=== PATIENT | female | born 1985 | race Caucasian/White ===

== ENCOUNTER 2022-05-01 02:48 | Emergency (ER) | payer BC, OTHER ==
[2022-05-01] MEDS ORDERED: Ibuprofen 600 MG Tab PO ONE (02:59)
[2022-05-01] MEDS ORDERED: Ondansetron 4 MG Tab.DIS PO ONE (02:59)
[2022-05-01 03:38] LABS: CORONAVIRUS COVID-19 NAA NEGATIVE (NEGATIVE); INFLUENZA A NAA POSITIVE (NEGATIVE); INFLUENZA B NAA NEGATIVE (NEGATIVE)
== END 2022-05-01 04:07 | disposition home or self-care (01) ==
LOC: MW.ED 02:48
DX: J10.1 Influenza due to other identified influenza virus with other respiratory manifestations (principal); Z88.0 Allergy status to penicillin; Z88.2 Allergy status to sulfonamides; Z20.822 Contact with and (suspected) exposure to COVID-19
CPT/HCPCS: 0240U; 99284; A9270

== ENCOUNTER 2023-12-24 15:11 | Inpatient (IN) | payer BC ==
[2023-12-24 16:16] LABS: HEMOGLOBIN 11.5 g/dL (12.0-16.0); MEAN CORPUSCULAR HEMOGLOBIN 29.9 pg (28.0-32.0); MEAN CORPUSCULAR HGB CONC 34.8 g/dL (32.0-36.0); MEAN CORPUSCULAR VOLUME 85.9 fL (83.0-99.0); MEAN PLATELET VOLUME 9.3 fL (9.4-12.3); PLATELET COUNT,PLT 322 K/uL (150-400); RED BLOOD CELL COUNT 3.84 M/uL (4.10-5.30); WHITE BLOOD CELL COUNT,WBC 12.17 K/uL (3.9-11.3)
[2023-12-24 16:32] LABS: APPEARANCE,URINE CLOUDY; BILIRUBIN,URINE NEGATIVE (NEGATIVE); COLOR,URINE YELLOW; GLUCOSE,URINE NEGATIVE (NEGATIVE); KETONES,URINE NEGATIVE (NEGATIVE); LEUKOCYTE ESTERASE,URINE LARGE (NEGATIVE); NITRITE,URINE NEGATIVE (NEGATIVE); OCCULT BLOOD,URINE NEGATIVE (NEGATIVE); PH,URINE 6.5 (5.0-8.0); PROTEIN,URINE NEGATIVE (NEGATIVE); UROBILINOGEN,URINE 0.2 EU/dL (<2.0)
[2023-12-24 16:34] LABS: A/G RATIO 0.7 (0.9-1.6); ALBUMIN 2.5 g/dL (3.4-5.0); BILIRUBIN TOTAL 0.3 mg/dL (0.2-1.0); CALCIUM 8.8 mg/dL (8.5-10.1); CARBON DIOXIDE,CO2 21.8 mmol/L (21.0-32.0); CREATININE 0.9 mg/dL (0.6-1.0); EST CRCL DRUG DOSING (CG) 90.31 mL/min; POTASSIUM,K 3.6 mmol/L (3.5-5.1); PROTEIN TOTAL,TP 6.3 g/dL (6.4-8.2); URIC ACID 5.4 mg/dL (2.6-7.2)
[2023-12-24] MEDS ORDERED: Carboprost Tromethamine 250 MCG/1 mL Vial IM PRN (18:35)
[2023-12-24] MEDS ORDERED: Methylergonovine 0.2 MG/1 ML Amp IM PRN (18:35)
[2023-12-24] MEDS ORDERED: Terbutaline 1 MG/ML SDV SUBCUT PRN (18:35)
[2023-12-24] MEDS ORDERED: Water For Irrigation,Sterile 1,000 ML Container IRR PRN (18:35)
[2023-12-24] MEDS ORDERED: Sodium Chloride 0.9% 10 ML Syringe FLUSH PRN (18:35)
[2023-12-24] MEDS ORDERED: Ondansetron 4 MG/2 ML SDV IVPUSH PRN (18:35)
[2023-12-24] MEDS ORDERED: Sodium Chloride 0.9% 2.5 ML Syringe FLUSH PRN (18:35)
[2023-12-24] MEDS ORDERED: Sodium Chloride 0.9% 20 ML SDV IV PRN (18:35)
[2023-12-24] MEDS ORDERED: Tranexamic Acid IN NACL,ISO-OS 1,000 MG in Premix Bag 1 BAG IV PRN (18:35)
[2023-12-24] MEDS ORDERED: Misoprostol 200 MCG Tab PO PRN (18:35)
[2023-12-24] MEDS ORDERED: Oxytocin/0.9 % Sodium Chloride 30 UNIT/500 ML BAG IV SCH (18:45)
[2023-12-24] MEDS: Misoprostol 25 MCG (1/4 of 100 MCG) Tab VAG PRN ×2 (19:05→23:15)
[2023-12-24] MEDS: Misoprostol 25 MCG (1/4 of 100 MCG) Tab PO PRN (19:05)
[2023-12-25] MEDS: Lactated Ringers 1,000 ML IV SCH (00:40)
[2023-12-25] MEDS: Calcium Carbonate 500 MG Tab.Chew PO PRN (03:49)
[2023-12-25] MEDS: Butorphanol 2 MG/ML SDV IVPUSH PRN (14:55)
[2023-12-25] MEDS: Ropivacaine HCl/PF 200 ML ONE (16:23)
[2023-12-25] MEDS: Oxytocin/0.9 % Sodium Chloride 30 UNIT/500 ML BAG IV SCH (16:30)
[2023-12-25] MEDS ORDERED: ePHEDrine 50 MG/ML SDV IVPUSH PRN ×2 (16:31)
[2023-12-25] MEDS ORDERED: Phenylephrine HCl In 0.9% NaCl 1 MG/10 ML Syringe IVPUSH PRN (16:31)
[2023-12-25] MEDS ORDERED: Ropivacaine HCl/PF 400 MG in Premix Bag 1 BAG EPIDUR SCH (16:45)
[2023-12-25] MEDS: Lidocaine 1% 50 ML MDV INJECT PRN (20:13)
[2023-12-25] MEDS ORDERED: Lanolin 100% Cream 7 GM Tube TOP PRN (22:47)
[2023-12-25] MEDS: Witch Hazel Medicated Pads 40/Jar TOP PRN (23:52)
[2023-12-25] MEDS: Benzocaine/Menthol 20%-0.5% Spray 78 GM Cannister TOP PRN (23:52)
[2023-12-25] MEDS: Acetaminophen 500 MG Tab PO PRN (23:53)
[2023-12-25] MEDS: Docusate Sodium 100 MG Cap PO PRN (23:53)
[2023-12-26] MEDS: Ibuprofen 800 MG Tab PO PRN (04:07)
[2023-12-26 05:07] LABS: URINE PROTEIN 23 mg/dL (1-14)
[2023-12-26 06:25] LABS: HEMATOCRIT 31.4 % (37.0-47.0); HEMOGLOBIN 10.7 g/dL (12.0-16.0)
[2023-12-26] MEDS: Phenylephrine HCl In 0.9% NaCl 1 MG/10 ML Syringe ONE (07:12)
[2023-12-26] MEDS: Bupivacaine 0.5% 10 ML SDV ONE (07:12)
== END 2023-12-27 11:06 | disposition still patient (30) | DRG 560 ==
LOC: MW.OBCHECK 15:11 → MW.OB 15:12 → MW.OBCHECK 18:35 → OBSVTOIN 12-25 20:24 → MW.OB 12-26 00:36
PROVIDERS: ADMIT Obstetrics & Gynecology; ATTEND Obstetrics & Gynecology
PROC: 10E0XZZ Delivery of Products of Conception, External Approach (ICD-10-PCS; principal; 2023-12-25)
PROC: 3E0P7VZ Introduction of Hormone into Female Reproductive, Via Natural or Artificial Opening (ICD-10-PCS; 2023-12-25)
PROC: 0KQM0ZZ Repair Perineum Muscle, Open Approach (ICD-10-PCS; 2023-12-25)
PROC: 10907ZC Drainage of Amniotic Fluid, Therapeutic from Products of Conception, Via Natural or Artificial Opening (ICD-10-PCS; 2023-12-25)
DX: O13.4 Gestational [pregnancy-induced] hypertension without significant proteinuria, complicating childbirth (principal); Z37.0 Single live birth; D62 Acute posthemorrhagic anemia; O70.1 Second degree perineal laceration during delivery; Z3A.38 38 weeks gestation of pregnancy; O90.81 Anemia of the puerperium; Z98.890 Other specified postprocedural states
CPT/HCPCS: 01967; 36415; 51702; 59025; 59409; 76805; 76805-26; 80053; 81003; 84550; 85014; 85018; 85027; 86592; 86850; 86900; 86901; A9270-GY; J0595; J0665; J2001; J2371; J2590; J2795; J7120